=== PATIENT | male | born 1970 | race Caucasian/White ===

== ENCOUNTER 2017-02-06 22:11 | Emergency (ER) | payer SELFPAY ==
[~2017-02-06] VITALS: Ht 170.2 cm; Wt 86.8 kg
[~2017-02-06 22:11] MED LIST: LEVIMIR SQ; LISI-170 PO; METF500T4 PO; SUMA25TA3 PO
[2017-02-06 22:16] VITALS: BP 132/82
== END 2017-02-06 23:30 | disposition home or self-care (01) ==
LOC: ED 23:20
DX: S16.1XXA Strain of muscle, fascia and tendon at neck level, initial encounter (principal); E11.9 Type 2 diabetes mellitus without complications; I10 Essential (primary) hypertension; I25.2 Old myocardial infarction; V89.2XXA Person injured in unspecified motor-vehicle accident, traffic, initial encounter; Y93.89 Activity, other specified; Y92.89 Other specified places as the place of occurrence of the external cause; Y99.8 Other external cause status
CPT/HCPCS: 72050; 99284

== ENCOUNTER 2017-05-10 11:58 | Emergency (ER) | payer BC ==
[~2017-05-10] VITALS: Ht 170.2 cm; Wt 79.7 kg
[2017-05-10] MEDS ORDERED: SUMATRIPTAN 6MG/0.5ML SQ ONE ×2 (12:30→13:47)
[2017-05-10] MEDS ORDERED: METOCLOPRAMIDE 5 MG/ML, 2ML IVPush ONE (12:30)
[2017-05-10] MEDS ORDERED: KETOROLAC 30 MG/1 ML IVPush ONE (12:30)
[2017-05-10] MEDS ORDERED: DIPHENHYDRAMINE 50 MG/ML, 1ML IVPush ONE (12:30)
[2017-05-10] MEDS ORDERED: SODIUM CHLORIDE FLUSH 10ML SYR IVF ONE (12:30)
[2017-05-10] MEDS ORDERED: SODIUM CHLORIDE 0.9% 1,000ML IVBOLUS ONE (12:30)
[2017-05-10] MEDS ORDERED: KETOROLAC 30 MG/1 ML ONE (12:34)
[2017-05-10] MEDS ORDERED: DIPHENHYDRAMINE 50 MG/ML, 1ML ONE (12:34)
[2017-05-10] MEDS ORDERED: METOCLOPRAMIDE 5 MG/ML, 2ML ONE (12:34)
[2017-05-10 13:04] LABS: BLOOD UREA NITROGEN 9 mg/dL (7-18)
[2017-05-10] MEDS ORDERED: INSULIN SINGLE DOSE, ER SQ-INSULIN ONE (13:52)
[2017-05-10] MEDS ORDERED: INSULIN REGULAR 100 UNITS/ML, 3ML VIAL SQ-INSULIN ONE (14:00)
[2017-05-10 14:42] VITALS: BP 121/78
== END 2017-05-10 14:43 | disposition home or self-care (01) ==
LOC: ED 14:25
DX: G89.29 Other chronic pain (principal); E11.65 Type 2 diabetes mellitus with hyperglycemia; G44.219 Episodic tension-type headache, not intractable
CPT/HCPCS: 36415; 80048; 81003; 82040; 82962; 85025; 96361; 96372; 96374; 96375; 99284; J1200; J1885; J2765; J7030

== ENCOUNTER 2018-06-25 18:55 | Emergency (ER) | payer SELFPAY ==
[~2018-06-25] VITALS: Ht 165.1 cm; Wt 73.5 kg
[~2018-06-25 18:55] MED LIST changes: +METF500T17 PO; -METF500T4 PO
[2018-06-25 19:02] VITALS: BP 133/78
[2018-06-25] MEDS ORDERED: METF500T17 PO (19:05)
[2018-06-25] MEDS ORDERED: ACETAMINOPHEN 500 MG TABLET PO ONE (19:30)
[2018-06-25] MEDS ORDERED: ACETAMINOPHEN 500 MG TABLET ONE (20:00)
== END 2018-06-25 20:08 | disposition home or self-care (01) ==
LOC: ED 20:07
DX: E11.40 Type 2 diabetes mellitus with diabetic neuropathy, unspecified (principal); M79.672 Pain in left foot; M79.671 Pain in right foot; F17.200 Nicotine dependence, unspecified, uncomplicated
CPT/HCPCS: 82962; 99283

== ENCOUNTER 2018-07-24 14:48 | Emergency (ER) | payer OTHER ==
[~2018-07-24] VITALS: Ht 170.2 cm; Wt 74.4 kg
[2018-07-24] MEDS ORDERED: CYCLOBENZAPRINE 10 MG TABLET ONE (15:15)
[2018-07-24] MEDS ORDERED: HYDROcodone/APAP 5/325 TABLET ONE (15:16)
[2018-07-24] MEDS ORDERED: KETOROLAC 30 MG/1 ML ONE (15:16)
[2018-07-24] MEDS ORDERED: CYCLOBENZAPRINE 10 MG TABLET PO ONE (15:30)
[2018-07-24] MEDS ORDERED: KETOROLAC 30 MG/1 ML IM ONE (15:30)
[2018-07-24] MEDS ORDERED: HYDROcodone/APAP 5/325 TABLET PO ONE (15:30)
[2018-07-24 15:59] VITALS: BP 130/87
== END 2018-07-24 16:02 | disposition home or self-care (01) ==
LOC: ED 15:30
DX: S39.012A Strain of muscle, fascia and tendon of lower back, initial encounter (principal); E11.9 Type 2 diabetes mellitus without complications; X58.XXXA Exposure to other specified factors, initial encounter; Y93.89 Activity, other specified; Y92.89 Other specified places as the place of occurrence of the external cause; Y99.8 Other external cause status
CPT/HCPCS: 96372; 99283; J1885

== ENCOUNTER 2018-10-06 19:51 | Emergency (ER) | payer OTHER ==
[~2018-10-06] VITALS: Ht 170.2 cm; Wt 70.9 kg
[2018-10-06] MEDS ORDERED: DIAZEPAM 5 MG TABLET ONE (20:40)
[2018-10-06] MEDS ORDERED: KETOROLAC 30 MG/1 ML ONE (20:40)
[2018-10-06] MEDS ORDERED: OXYcodone/APAP 5/325MG TABLET ONE (20:40)
[2018-10-06] MEDS ORDERED: KETOROLAC 30 MG/1 ML IM ONE (21:00)
[2018-10-06] MEDS ORDERED: DIAZEPAM 5 MG TABLET PO ONE (21:00)
[2018-10-06] MEDS ORDERED: OXYcodone/APAP 5/325MG TABLET PO ONE (21:00)
[2018-10-06 21:16] VITALS: BP 130/78
== END 2018-10-06 21:18 | disposition home or self-care (01) ==
LOC: ED 20:40
DX: S39.012A Strain of muscle, fascia and tendon of lower back, initial encounter (principal); M46.1 Sacroiliitis, not elsewhere classified; E11.40 Type 2 diabetes mellitus with diabetic neuropathy, unspecified; M54.41 Lumbago with sciatica, right side; X58.XXXA Exposure to other specified factors, initial encounter; Y93.89 Activity, other specified; Y92.89 Other specified places as the place of occurrence of the external cause; Y99.8 Other external cause status
CPT/HCPCS: 72110; 96372; 99283; J1885

== ENCOUNTER 2018-10-23 19:01 | Emergency (ER) | payer SELFPAY ==
[~2018-10-23] VITALS: Ht 172.7 cm; Wt 69.1 kg
[2018-10-23 19:06] VITALS: BP 134/86
--- NOTE | 2018-10-23 19:13 | NUR ---
PT ARRIVES TO ED WITH C/O OF LOWER BACK PAIN. DENIES ANY UNCONTROLLED BM OR URINATION. PT HAS COMPLETE SENSATION AND NO TINGLING OF LOWER LEGS. PT DENIES ANY RECENT TRAUMA. PT RESTING IN BED. AWAITING FURTHER ORDERS.
[2018-10-23] MEDS ORDERED: METHOCARBAMOL 750 MG TABLET ONE (19:23)
[2018-10-23] MEDS ORDERED: KETOROLAC 30 MG/1 ML ONE (19:24)
--- NOTE | 2018-10-23 19:27 | NUR ---
PT MEDICATED PER EMAR.
[2018-10-23] MEDS ORDERED: KETOROLAC 30 MG/1 ML IM ONE (19:30)
[2018-10-23] MEDS ORDERED: METHOCARBAMOL 750 MG TABLET PO ONE (19:30)
--- NOTE | 2018-10-23 20:24 | NUR ---
Patient/Caregiver given discharge instructions and they have confirmed that they understand the instructions. Patient ambulatory with steady gait.
== END 2018-10-23 20:32 | disposition home or self-care (01) ==
LOC: ED 19:45
DX: G89.29 Other chronic pain (principal); M54.5 Low back pain; E11.9 Type 2 diabetes mellitus without complications
CPT/HCPCS: 96372; 99283; J1885

== ENCOUNTER 2019-03-30 20:25 | Emergency (ER) | payer MEDICAID ==
[~2019-03-30] VITALS: Ht 172.7 cm; Wt 69.9 kg
[2019-03-30 20:32] VITALS: BP 125/87
[2019-03-30] MEDS ORDERED: LIDOCAINE-MPF 1%, 5ML ONE (20:59)
[2019-03-30] MEDS ORDERED: BUPIVACAINE 0.25% ONE (20:59)
[2019-03-30] MEDS ORDERED: BUPIVACAINE/PF-EPI 0.25% 1:200K SQ ONE (21:00)
[2019-03-30] MEDS ORDERED: LIDOCAINE-MPF 1%, 5ML INFIL ONE (21:00)
== END 2019-03-30 21:38 | disposition home or self-care (01) ==
LOC: ED 21:17
DX: K08.89 Other specified disorders of teeth and supporting structures (principal); Z72.9 Problem related to lifestyle, unspecified; E11.9 Type 2 diabetes mellitus without complications; F17.200 Nicotine dependence, unspecified, uncomplicated
CPT/HCPCS: 64400; 99284